=== PATIENT | male | born 1975 | race Hispanic/Latino ===

== ENCOUNTER 2018-11-27 08:36 | Emergency (ER) | payer OTHER ==
[2018-11-27] MEDS ORDERED: ACETAMINOPHEN EXTRA STRENGTH 500 MG TABLET ONE (09:09)
[2018-11-27 09:28] LABS: RAPID GROUP A STREP NEGATIVE (NEGATIVE)
== END 2018-11-27 09:58 | disposition home or self-care (01) ==
LOC: EDH 08:36 → EEVIPCON 08:36 → EDH 09:58
DX: J09.X2 Influenza due to identified novel influenza A virus with other respiratory manifestations (principal); H10.31 Unspecified acute conjunctivitis, right eye
CPT/HCPCS: 87804; 87880